=== PATIENT | male | born 1960 | race Asian ===

== ENCOUNTER 2016-08-22 10:23 | Inpatient (IN) | payer OTHER ==
[~2016-08-22] VITALS: Ht 170.2 cm; Wt 50.0 kg
[~2016-08-22 10:23] MED LIST: LISI-170 PO; METF10002 PO; OXYC5TAB3 PO; metformin; ranitidine
[2016-08-22] MEDS ORDERED: SODIUM CHLORIDE 0.9% 1,000 ML IV ONE (10:53)
[2016-08-22] MEDS ORDERED: SODIUM CHLORIDE 0.9% 1,000ML IVBOLUS ONE (11:00)
[2016-08-22] MEDS ORDERED: ONDANSETRON 2MG/ML, 2ML IVPush ONE (11:00)
[2016-08-22] MEDS ORDERED: MORPHINE SULFATE 4 MG/ML, 1ML IVPush PRN (11:00)
[2016-08-22] MEDS ORDERED: FAMOTIDINE 20 MG/2 ML IVP ONE (11:00)
[2016-08-22] MEDS ORDERED: MORPHINE SULFATE 4 MG/ML, 1ML ONE ×2 (11:05→12:17)
[2016-08-22] MEDS ORDERED: ONDANSETRON 2MG/ML, 2ML ONE (11:05)
[2016-08-22] MEDS ORDERED: MAALOX/HYOSCYAMINE/LIDOCAINE 45 ML BOTTLE ONE (11:05)
[2016-08-22] MEDS ORDERED: FAMOTIDINE 20 MG/2 ML ONE (11:06)
[2016-08-22] MEDS ORDERED: MAALOX/HYOSCYAMINE/LIDOCAINE 45 ML BOTTLE PO ONE (11:30)
[2016-08-22 11:37] LABS: ASPARTATE AMINO TRANSFERASE 20 U/L (15-37); BLOOD UREA NITROGEN 11 mg/dL (7-18)
[2016-08-22] MEDS ORDERED: POTASSIUM CHLORIDE 20 MEQ TAB.ER.PRT ONE (12:18)
[2016-08-22] MEDS ORDERED: POTASSIUM CHLORIDE 20 MEQ TAB.ER.PRT PO ONE (12:30)
[2016-08-22] MEDS ORDERED: DOCUSATE 100 MG CAPSULE PO PRN (13:30)
[2016-08-22] MEDS ORDERED: PROMETHAZINE 25 MG/ML, 1ML IM PRN (13:30)
[2016-08-22] MEDS ORDERED: LORazepam 2 MG/ML, 1ML IVPush PRN (13:30)
[2016-08-22] MEDS ORDERED: POLYETHYLENE GLYCOL 17 GM PACKET PO PRN (13:30)
[2016-08-22] MEDS ORDERED: ONDANSETRON 2MG/ML, 2ML IVP PRN (13:30)
[2016-08-22] MEDS ORDERED: BISACODYL 10 MG SUPP PR PRN (13:30)
[2016-08-22] MEDS ORDERED: LABETALOL 5MG/ML, 20ML IV PRN (13:30)
[2016-08-22 13:45] VITALS: BP 234/122
[2016-08-22 14:00] VITALS: BP 225/121
[2016-08-22] MEDS: ENALAPRILAT 1.25 MG/ML, 2ML IVPush PRN (14:51)
[2016-08-22] MEDS: HYDROmorphone 2 MG/ML, 1ML IV PRN ×3 (14:55→22:00)
[2016-08-22] MEDS: INSULIN REGULAR 100 UNITS/ML, 3ML VIAL SQ-INSULIN SCH ×2 (16:00→21:00)
[2016-08-22 16:10] VITALS: BP 197/122
[2016-08-22] MEDS: POTASSIUM CHLORIDE 20 MEQ in LACTATED RINGERS 1,000 ML IV SCH (17:12)
[2016-08-22] MEDS: ENOXAPARIN 40 MG/0.4 ML SQ SCH (17:12)
[2016-08-22] MEDS: hydrALAzine 20 MG/ML, 1ML IV PRN (17:13)
[2016-08-22 17:14] VITALS: BP 209/131
[2016-08-22] MEDS ORDERED: POTASSIUM CHLORIDE 20 MEQ, MAGNESIUM SULFATE 2 GM, THIAMINE 100 MG, MVI ADULT 10 ML, FO... IV SCH (18:30)
[2016-08-22 19:53] VITALS: BP 156/106
[2016-08-23 02:07] VITALS: BP 147/85
[2016-08-23 05:55] LABS: BLOOD UREA NITROGEN 10 mg/dL (7-18)
[2016-08-23] MEDS: POTASSIUM CHLORIDE 20 MEQ in LACTATED RINGERS 1,000 ML IV SCH (06:08)
[2016-08-23] MEDS: HYDROmorphone 2 MG/ML, 1ML IV PRN ×2 (06:18→09:37)
[2016-08-23 06:56] VITALS: BP 159/84
[2016-08-23] MEDS: INSULIN REGULAR 100 UNITS/ML, 3ML VIAL SQ-INSULIN SCH ×4 (07:00→21:00)
[2016-08-23] MEDS ORDERED: LISINOPRIL 20 MG TABLET PO SCH (09:00)
[2016-08-23 13:35] VITALS: BP 163/93
[2016-08-23] MEDS: OXYcodone IR 5MG TABLET PO PRN ×3 (14:55→21:01)
[2016-08-23] MEDS: ENOXAPARIN 40 MG/0.4 ML SQ SCH (14:57)
[2016-08-23 18:21] VITALS: BP 166/94
[2016-08-23] MEDS: LISINOPRIL 20 MG TABLET PO SCH (21:01)
[2016-08-24] MEDS: OXYcodone IR 5MG TABLET PO PRN ×6 (00:33→19:56)
[2016-08-24 04:10] VITALS: BP 179/98
[2016-08-24] MEDS: hydrALAzine 20 MG/ML, 1ML IV PRN (04:14)
[2016-08-24 04:55] VITALS: BP 142/78
[2016-08-24] MEDS: INSULIN REGULAR 100 UNITS/ML, 3ML VIAL SQ-INSULIN SCH ×4 (07:00→20:04)
[2016-08-24 07:40] VITALS: BP 151/77
[2016-08-24] MEDS: LISINOPRIL 20 MG TABLET PO SCH ×2 (08:59→19:56)
[2016-08-24] MEDS ORDERED: THIAMINE 100MG TABLET PO SCH (09:00)
[2016-08-24] MEDS ORDERED: FOLIC ACID 1 MG TABLET PO SCH (09:00)
[2016-08-24] MEDS ORDERED: CYANOCOBALAMIN 1,000 MCG TABLET PO SCH (09:00)
[2016-08-24] MEDS ORDERED: MULTIVITAMIN 1 TABLET PO SCH (09:00)
[2016-08-24 12:23] VITALS: BP 161/88
[2016-08-24] MEDS: ENOXAPARIN 40 MG/0.4 ML SQ SCH (13:41)
[2016-08-24] MEDS: ENALAPRILAT 1.25 MG/ML, 2ML IVPush PRN (13:41)
[2016-08-24 18:54] VITALS: BP 132/84
[2016-08-24 19:54] VITALS: BP 157/103
[2016-08-25 00:33] VITALS: BP 157/100
== END 2016-08-25 04:00 | disposition left against medical advice (07) | DRG 439 ==
LOC: ED 11:07 → EDIP 12:27 → SUATTDRO 12:36 → 3NW 13:28
PROC: 0T9B70Z Drainage of Bladder with Drainage Device, Via Natural or Artificial Opening (ICD-10-PCS; principal; 2016-08-22)
DX: K85.20 Alcohol induced acute pancreatitis without necrosis or infection (principal); R65.10 Systemic inflammatory response syndrome (SIRS) of non-infectious origin without acute organ dysfunction; I10 Essential (primary) hypertension; E11.9 Type 2 diabetes mellitus without complications; E86.0 Dehydration; I16.0 Hypertensive urgency; E87.6 Hypokalemia; F10.20 Alcohol dependence, uncomplicated; F17.210 Nicotine dependence, cigarettes, uncomplicated; Z80.9 Family history of malignant neoplasm, unspecified
CPT/HCPCS: 36415; 80048; 80053; 80307; 81001; 82962; 83690; 83735; 84100; 85025; 85610; 96361; 96374; 96375; J1170; J1650; J1815; J2405; J3411; J3475; J3480; J7042; J0360; J7030; J7120; S0028

== ENCOUNTER 2016-10-12 23:22 | Inpatient (IN) | payer SELFPAY ==
[~2016-10-12] VITALS: Ht 170.2 cm; Wt 62.7 kg
[~2016-10-12 23:22] MED LIST changes: +LIPA1CAP17 PO
[2016-10-12] MEDS ORDERED: ONDANSETRON 2MG/ML, 2ML ONE (23:54)
[2016-10-13] MEDS ORDERED: ONDANSETRON 2MG/ML, 2ML IVPush ONE
[2016-10-13] MEDS ORDERED: SODIUM CHLORIDE 0.9% 1,000ML IVBOLUS ONE
[2016-10-13] MEDS ORDERED: SODIUM CHLORIDE FLUSH 10ML SYR IVF ONE
[2016-10-13 00:30] LABS: ASPARTATE AMINO TRANSFERASE 13 U/L (15-37); BLOOD UREA NITROGEN 13 mg/dL (7-18)
[2016-10-13] MEDS ORDERED: HYDROmorphone 1 MG/ML, 1ML ONE (01:11)
[2016-10-13] MEDS ORDERED: METF500T4 PO (01:16)
[2016-10-13] MEDS ORDERED: HYDROmorphone 1 MG/ML, 1ML IV ONE (01:30)
[2016-10-13] MEDS ORDERED: ENOXAPARIN 40 MG/0.4 ML SQ SCH (03:00)
[2016-10-13] MEDS ORDERED: morphine SULFATE 10 MG/ML, 1ML IVPush PRN (03:00)
[2016-10-13 03:53] VITALS: BP 173/102
[2016-10-13] MEDS: NS + 20MEQ KCL 1,000 ML IV SCH ×2 (04:51→12:55)
[2016-10-13 05:37] VITALS: BP 184/105
[2016-10-13] MEDS: ENALAPRILAT 1.25 MG/ML, 2ML IV PRN (05:38)
[2016-10-13] MEDS ORDERED: MORPHINE SULFATE 4 MG/ML, 1ML ONE (06:29)
[2016-10-13] MEDS: MORPHINE SULFATE 4 MG/ML, 1ML IVPush PRN ×2 (06:31→08:41)
[2016-10-13] MEDS: INSULIN ASPART 100 UNITS/ML, PEN SQ-INSULIN SCH ×4 (06:37→21:00)
[2016-10-13 07:50] VITALS: BP 154/94
[2016-10-13] MEDS: LISINOPRIL 20 MG TABLET PO SCH (08:41)
[2016-10-13] MEDS ORDERED: PANTOPRAZOLE 40 MG IV IVPush SCH (09:00)
[2016-10-13] MEDS ORDERED: POLYETHYLENE GLYCOL 17 GM PACKET PO SCH (09:00)
[2016-10-13] MEDS: HYDROmorphone 1 MG/ML, 1ML IV PRN ×4 (12:10→21:29)
[2016-10-13 14:38] VITALS: BP 155/91
[2016-10-13] MEDS: POLYETHYLENE GLYCOL 17 GM PACKET PO SCH ×3 (15:00→22:00)
[2016-10-13] MEDS: POTASSIUM CHLORIDE 10 MEQ in SODIUM CHLORIDE 0.9% 1,000 ML IV SCH ×2 (15:10→21:29)
[2016-10-13] MEDS ORDERED: METHYLNALTREXONE 12 MG/0.6 ML SQ ONE (18:30)
[2016-10-13 18:39] LABS: DAU SCREEN DISCLAIMER
[2016-10-13 19:02] VITALS: BP 138/73
[2016-10-13] MEDS: PANTOPRAZOLE 40 MG IV IVPush SCH (21:28)
[2016-10-14 00:41] VITALS: BP 162/85
[2016-10-14] MEDS: POTASSIUM CHLORIDE 10 MEQ in SODIUM CHLORIDE 0.9% 1,000 ML IV SCH ×5 (01:27→20:32)
[2016-10-14] MEDS: HYDROmorphone 1 MG/ML, 1ML IV PRN ×7 (02:49→21:15)
[2016-10-14] MEDS: POLYETHYLENE GLYCOL 17 GM PACKET PO SCH ×3 (05:33→21:25)
[2016-10-14 05:36] LABS: ASPARTATE AMINO TRANSFERASE 15 U/L (15-37); BLOOD UREA NITROGEN 9 mg/dL (7-18)
[2016-10-14] MEDS: ONDANSETRON 2MG/ML, 2ML IVPush PRN (06:19)
[2016-10-14] MEDS: INSULIN ASPART 100 UNITS/ML, PEN SQ-INSULIN SCH ×4 (06:21→21:22)
[2016-10-14 07:11] VITALS: BP 207/96
[2016-10-14] MEDS: ENALAPRILAT 1.25 MG/ML, 2ML IV PRN (07:19)
[2016-10-14 08:05] VITALS: BP 196/99
[2016-10-14] MEDS: PANTOPRAZOLE 40 MG IV IVPush SCH ×2 (08:23→20:04)
[2016-10-14] MEDS: LISINOPRIL 20 MG TABLET PO SCH (08:23)
[2016-10-14] MEDS ORDERED: hydrALAzine 20 MG/ML, 1ML IV ONE (08:30)
[2016-10-14 09:02] VITALS: BP 164/83
[2016-10-14] MEDS ORDERED: MIDAZOLAM 1 MG/ML, 2ML ONE (09:32)
[2016-10-14] MEDS ORDERED: FENTANYL PF 100 MCG/2ML ONE (09:32)
[2016-10-14] MEDS ORDERED: PROPOFOL 10 MG/ML, 50ML ONE (10:07)
[2016-10-14] MEDS ORDERED: hydrALAzine 20 MG/ML, 1ML IV PRN (10:30)
[2016-10-14 12:22] VITALS: BP 142/90
[2016-10-14 19:48] VITALS: BP 139/83
[2016-10-14] MEDS ORDERED: FENTANYL/BUPIV./NS/PF 250 ML EPIDCONT ONE (22:12)
[2016-10-14] MEDS ORDERED: BUPIVACAINE/PF 0.25% ONE (22:12)
[2016-10-15] MEDS: HYDROmorphone 1 MG/ML, 1ML IV PRN ×8 (00:11→21:33)
[2016-10-15 03:05] VITALS: BP 135/73
[2016-10-15] MEDS: POTASSIUM CHLORIDE 10 MEQ in SODIUM CHLORIDE 0.9% 1,000 ML IV SCH ×4 (03:05→21:32)
[2016-10-15 05:58] LABS: ASPARTATE AMINO TRANSFERASE 9 U/L (15-37); BLOOD UREA NITROGEN 6 mg/dL (7-18)
[2016-10-15] MEDS: POLYETHYLENE GLYCOL 17 GM PACKET PO SCH ×3 (07:00→21:39)
[2016-10-15 08:02] VITALS: BP 137/87
[2016-10-15] MEDS: LISINOPRIL 20 MG TABLET PO SCH (08:04)
[2016-10-15] MEDS: PANTOPRAZOLE 40 MG IV IVPush SCH ×2 (08:04→21:32)
[2016-10-15] MEDS: INSULIN ASPART 100 UNITS/ML, PEN SQ-INSULIN SCH ×4 (08:05→21:33)
[2016-10-15 08:13] VITALS: BP 121/73
[2016-10-15] MEDS: ONDANSETRON 2MG/ML, 2ML IVPush PRN (08:41)
[2016-10-15 12:12] VITALS: BP 132/81
[2016-10-15 19:46] VITALS: BP 168/86
[2016-10-16] MEDS: HYDROmorphone 1 MG/ML, 1ML IV PRN ×4 (00:26→10:49)
[2016-10-16 03:40] VITALS: BP 138/78
[2016-10-16] MEDS: POTASSIUM CHLORIDE 10 MEQ in SODIUM CHLORIDE 0.9% 1,000 ML IV SCH ×3 (04:18→14:02)
[2016-10-16 06:17] LABS: BLOOD UREA NITROGEN 4 mg/dL (7-18)
[2016-10-16 06:28] LABS: ASPARTATE AMINO TRANSFERASE 12 U/L (15-37)
[2016-10-16] MEDS: POLYETHYLENE GLYCOL 17 GM PACKET PO SCH ×2 (06:58→13:53)
[2016-10-16] MEDS: INSULIN ASPART 100 UNITS/ML, PEN SQ-INSULIN SCH ×3 (07:00→17:04)
[2016-10-16 07:10] VITALS: BP 162/93
[2016-10-16] MEDS: LISINOPRIL 20 MG TABLET PO SCH (09:07)
[2016-10-16] MEDS: PANTOPRAZOLE 40 MG IV IVPush SCH (09:07)
[2016-10-16] MEDS ORDERED: BISACODYL 10 MG SUPP PR PRN (11:30)
[2016-10-16 13:10] VITALS: BP 174/94
[2016-10-16] MEDS ORDERED: HYDR-3307 PO (15:23)
[2016-10-16] MEDS ORDERED: HYDROcodone/APAP 10/325 MG TABLET PO PRN (15:30)
[2016-10-16] MEDS ORDERED: DOCU-30 PO (17:16)
[2016-10-16 17:30] VITALS: BP 190/100
[2016-10-16] MEDS ORDERED: AMLODIPINE 5 MG TABLET PO ONE (17:30)
[2016-10-16] MEDS ORDERED: hydrALAzine 20 MG/ML, 1ML IV PRN (17:30)
[2016-10-16 18:07] VITALS: BP 178/93
== END 2016-10-16 18:59 | disposition left against medical advice (07) | DRG 377 ==
LOC: ED 23:59 → EDIP 10-13 02:07 → 4NOR 10-13 03:30
PROVIDERS: ADMIT Internal Medicine; ATTEND Internal Medicine
PROC: 0DJ08ZZ Inspection of Upper Intestinal Tract, Via Natural or Artificial Opening Endoscopic (ICD-10-PCS; principal; 2016-10-14 10:00)
DX: K92.1 Melena (principal); K85.20 Alcohol induced acute pancreatitis without necrosis or infection; E46 Unspecified protein-calorie malnutrition; K86.2 Cyst of pancreas; K86.0 Alcohol-induced chronic pancreatitis; I10 Essential (primary) hypertension; E11.9 Type 2 diabetes mellitus without complications; B19.20 Unspecified viral hepatitis C without hepatic coma; E87.6 Hypokalemia; D50.0 Iron deficiency anemia secondary to blood loss (chronic); F10.21 Alcohol dependence, in remission; G89.29 Other chronic pain; K44.9 Diaphragmatic hernia without obstruction or gangrene; Z53.21 Procedure and treatment not carried out due to patient leaving prior to being seen by health care provider; F17.210 Nicotine dependence, cigarettes, uncomplicated; S91.101A Unspecified open wound of right great toe without damage to nail, initial encounter; K59.00 Constipation, unspecified; X58.XXXA Exposure to other specified factors, initial encounter; Z71.6 Tobacco abuse counseling; Z91.19 Patient's noncompliance with other medical treatment and regimen; Z71.41 Alcohol abuse counseling and surveillance of alcoholic; Z79.84 Long term (current) use of oral hypoglycemic drugs; Z79.899 Other long term (current) drug therapy; Y93.89 Activity, other specified; Y92.89 Other specified places as the place of occurrence of the external cause; Y99.8 Other external cause status; Z68.21 Body mass index [BMI] 21.0-21.9, adult
CPT/HCPCS: 36415; 74020; 80053; 80307; 82105; 82962; 83690; 83735; 84100; 84425; 85025; 85610; 85651; 86140; 86850; 86900; 96361; 96374; 96375; J1170; J1650; J1815; J2250; J2405; J2704; J3010; J3480; J3490; C9113; J0360; J2270; J7030